=== PATIENT | male | born 1990 | race Caucasian/White ===

== ENCOUNTER 2018-04-16 23:11 | Inpatient (IN) | payer OTHER ==
--- NOTE | 2018-04-17 00:26 | PDOC ---
History of Present Illness - General History Source: Patient Exam Limitations: No Limitations - History of Present Illness Initial Comments: 04/17/18 01:52 The patient is a 28 year old male with a significant PMH of asthma who presents to the emergency department with a right hand wound for about 1 week. The patient reports that he was seen at [facility] about 1 week ab=go for severe right arm swelling secondary to recent heroin injection use. The patient reports that he was discharged from the hospital a few days ago by which he was given antibiotics. He states that since his discharge his wound has worsened. He states that his last heroin injection was a couple days ago. He denies and numbness, weakness or tingling sensation . he denies any recent injury or bites. The patient denies any other symptoms . he denies any fever, chills. Nausea, vomiting, diarrhea, constipation, or urinary symptoms. He denies any chest pain shortness of breath, headache or dizziness. The patient denies any other complaints. <Laurie Barber - Last Filed: 04/17/18 02:35> - General History Source: Patient Exam Limitations: No Limitations <Isaura Rondon - Last Filed: 04/18/18 05:36> - General Chief Complaint: Wound Stated Complaint: ABSCESS BOIL HAND Time Seen by Provider: 04/17/18 00:25 Past History <Laurie Barber - Last Filed: 04/17/18 02:35> - Past Medical History Anemia: No Asthma: No Cancer: No Cardiac Disorders: No CVA: No COPD: No CHF: No DVT: No - Surgical History Cardiac Surgery: No Cholecystectomy: No Gastric Stapling: No GI Surgery: No Lung Surgery: No - Suicide/Smoking/Psychosocial Hx Smoking History: Never smoked Drug/Substance Use Hx: Yes (Heroin, MDMA) Substance Use Type: Heroin <Isaura Rondon - Last Filed: 04/18/18 05:36> - Past Medical History Allergies/Adverse Reactions: Allergies Allergy/AdvReac Type Severity Reaction Status Date / Time No Known Allergies Allergy Verified 04/16/18 22:04 Home Medications: Ambulatory Orders NK [No Known Home Medication] 04/17/18 Review of Systems - Review of Systems Able to Perform ROS?: Yes Comments:: 04/17/18 01:52 GENERAL/CONSTITUTIONAL: No fever or chills. No weakness. HEAD, EYES, EARS, NOSE AND THROAT: No change in vision. No ear pain or discharge. No sore throat. CARDIOVASCULAR: No chest pain or shortness of breath. RESPIRATORY: No cough, wheezing, or hemoptysis. GASTROINTESTINAL: No nausea, vomiting, diarrhea or constipation. GENITOURINARY: No dysuria, frequency, or change in urination. MUSCULOSKELETAL: (+)right hand wound. No joint or muscle swelling or pain. No neck or back pain. SKIN: No rash NEUROLOGIC: No headache, vertigo, loss of consciousness, or change in strength/ sensation. ENDOCRINE: No increased thirst. No abnormal weight change. HEMATOLOGIC/LYMPHATIC: No anemia, easy bleeding, or history of blood clots. ALLERGIC/IMMUNOLOGIC: No hives or skin allergy. <Laurie Barber - Last Filed: 04/17/18 02:35> *Physical Exam - Vital Signs Last Vital Signs Temp Pulse Resp BP Pulse Ox 98.5 F 91 H 20 110/56 L 98 04/16/18 23:28 04/16/18 23:28 04/16/18 23:28 04/16/18 23:28 04/16/18 23:28 - Physical Exam Comments: 04/17/18 01:52 GENERAL: The patient is in no acute distress. HEAD: Normal with no signs of trauma. LUNGS: Breath sounds equal, clear to auscultation bilaterally. No wheezes, and no crackles. HEART:Regular rate and rhythm, normal S1 and S2 without murmur, rub or gallop. ABDOMEN: Soft, nontender, normoactive bowel sounds. No guarding, no rebound. No masses palpable. EXTREMITIES: (+)4x4 indurated area and +10cm erythema to right hand. Normal range of motion, no edema. No clubbing or cyanosis. No erythema, or tenderness. NEUROLOGICAL: Cranial nerves II through XII grossly intact. Normal speech. No focal neurological deficits. MUSCULOSKELETAL: Back non-tender to palpation, no CVA tenderness SKIN: Warm, Dry, normal turgor, no rashes or lesions noted. <Laurie Barber - Last Filed: 04/17/18 02:35> - Vital Signs Last Vital Signs Temp Pulse Resp BP Pulse Ox 98.5 F 91 H 20 110/56 L 98 04/16/18 23:28 04/16/18 23:28 04/16/18 23:28 04/16/18 23:28 04/16/18 23:28 <Isaura Rondon - Last Filed: 04/18/18 05:36> Heart Score/ECG Review - ECG Intrepretation Comment:: 04/17/18 02:35 Vent rate: 88bpm [place] interval:116 ms QRS duration:100 ms QT/QTc:398/481 ms Normal sinus rhythm Prolonged QT Abnormal ECG <Laurie Barber - Last Filed: 04/17/18 02:35> ED Treatment Course - LABORATORY CBC & Chemistry Diagram: 04/17/18 01:45 04/17/18 01:45 <Laurie Barber - Last Filed: 04/17/18 02:35> - LABORATORY CBC & Chemistry Diagram: 04/17/18 07:35 04/17/18 07:35 <Isaura Rondon - Last Filed: 04/18/18 05:36> Medical Decision Making - Medical Decision Making 04/17/18 02:01 Mr. Jimenez is a 28-year-old [id number] male presented to emergency department from [facility] due to forearm abscess. Patient was in his usual state of health, routinely injects heroin. Was unclear about the last time he injected heroin. Patient states that more than 1 week ago he noted swelling to his right forearm which she believes is related to his last injection. He was seen at [facility] where he was admitted for almost 1 week and placed on IV antibiotics. There was no attempt to incise or drain the forearm abscess. He states it appears better than it looked prior to his admission to [place]. He was discharged on by mouth antibiotics. Patient's decided to come to [facility] for heroin detox. He was noted to have this forearm abscess and was sent to the ER for evaluation On exam: Patient is awake, alert. Patient appears cachectic to me. Heart is regular with possibly a faint murmur Lungs are clear Right forearm with a 5 x 5 cm area of induration and fluctuance Patient has a 10 cm area at minimum of erythema. 04/17/18 02:08 EKG: Sinus rhythm, rate of 80 bpm, axis is normal, intervals are normal, no ST elevations or depressions Ordered for vanc and zosyn Admit to hospitalist service <Isaura Rondon - Last Filed: 04/18/18 05:36> *DC/Admit/Observation/Transfer - Attestations Scribe Attestion: 04/17/18 01:52 Documentation prepared by Laurie Barber, acting as medical assistant supervisor for Isaura Rondon MD. <Laurie Barber - Last Filed: 04/17/18 02:35> - Discharge Dispostion Decision to Admit order: Yes <Isaura Rondon - Last Filed: 04/18/18 05:36> Diagnosis at time of Disposition: Abscess of forearm, right - Discharge Dispostion Condition at time of disposition: Improved
[2018-04-17] MEDS ORDERED: PIPERACILLIN/TAZOB 4.5 GM 4.5 GM in DEXTROSE 5%-WATER 100 ML IVPB ONE (00:42)
[2018-04-17] MEDS ORDERED: PIPERACILLIN/TAZOB 4.5 GM 4.5 GM/100 ML BAG IVPB ONE (01:53)
[2018-04-17 02:15] LABS: BASO % 0.5 % (0-2.0); EOS % 5.6 % (0-4.5); HEMATOCRIT 33.9 % (35.4-49); LYMPH % 17.7 % (8-40); MCH 26.9 pg (25.7-33.7); MCHC 32.4 g/dl (32.0-35.9); MEAN CELL VOLUME 82.9 fl (80-96); MEAN PLT VOLUME 7.4 fl (7.5-11.1); MONO % 4.9 % (3.8-10.2); NEUT % 71.3 % (42.8-82.8); PLATELET COUNT 519 K/MM3 (134-434); RBC 4.09 M/mm3 (4.00-5.60); WHITE BLOOD COUNT 8.1 K/mm3 (4.0-10.0)
[2018-04-17 02:43] LABS: ALBUMIN 3.1 g/dl (3.4-5.0); ALK PHOS 104 U/L (45-117); ANION GAP 6 MMOL/L (8-16); BILIRUBIN,TOTAL 0.3 mg/dL (0.2-1); BLOOD UREA NITROGEN 7 mg/dL (7-18); CALCIUM 8.9 mg/dL (8.5-10.1); CHLORIDE 99 mmol/L (98-107); CO2 32 mmol/L (21-32); CREATININE 0.4 mg/dL (0.55-1.3); GLUCOSE,RANDOM 99 mg/dL (74-106); SGOT/AST 30 U/L (15-37); SGPT/ALT 31 U/L (13-61); SODIUM 137 mmol/L (136-145); TOT PROT 7.3 g/dl (6.4-8.2)
--- NOTE | 2018-04-17 04:28 | PN ---
Teaching Attending Note Name of Resident: Afshin Reid ATTENDING PHYSICIAN STATEMENT I saw and evaluated the patient. I reviewed the resident's note and discussed the case with the resident. I agree with the resident's findings and plan as documented. SUBJECTIVE: Patient is a 28 year old man with a PMH of asthma who presents to ER with a right hand wound for about 1 week. The patient reports that he was seen at [facility] about 1 week ago for severe right arm swelling due to recent heroin injection use. The patient reports that he was discharged from the hospital a few days ago with antibiotics. He states that since his discharge his wound has worsened. He states that his last heroin injection was a couple days ago. He denies and numbness, weakness or tingling sensation. He denies any fever, chills, vomiting, chest pain or shortness of breath. OBJECTIVE: Somnolent but arousable. Cachectic Vital Signs Period Temp Pulse Resp BP Sys/Betancur Pulse Ox Last 24 Hr 98.5 F 91 20 110/56 98-100 HEENT: No Jaundice, eye redness or discharge, PERRLA, EOMI. Normocephalic, atraumatic. External ears are normal and hearing is grossly intact. No nasal discharge. Neck: Supple, nontender. No palpable adenopathy or thyromegaly. No JVD Chest: Good effort. Clear to auscultation and percussion. Heart: Regular. No S3, rub or murmur Abdomen: Not distended, soft, nontender and no HSM. No rebound or guarding. Normoactive bowel sounds. Ext: Peripheral pulses intact. No leg edema. Skin: Warm and dry. Right forearm abscess with cellulitis. Neuro: Somnolent but arousable. Oriented to person and place. CN 2-12 grossly intact. Sensation grossly intact in all four extremities and DTR are symmetric. Home Medications Medication Instructions Recorded NK [No Known Home Medication] 04/17/18 Abnormal Lab Results 04/17/18 04/17/18 04/17/18 01:45 01:45 01:45 Hgb 11.0 L Hct 33.9 L Plt Count 519 H MPV 7.4 L Eosinophils % 5.6 H ESR Anion Gap 6 L Creatinine 0.4 L C-Reactive Protein 3.9 H Albumin 3.1 L 04/17/18 01:45 Hgb Hct Plt Count MPV Eosinophils % ESR 62 H Anion Gap Creatinine C-Reactive Protein Albumin ASSESSMENT AND PLAN: 1. Right forearm abscess and cellulitis - Due to injection drug use. Get sonogram of forearm, treat with IV clindamycin and zosyn and IV NS. Monitor closely for heroin withdrawal and use clonidine and methadone when indicated. Consult client care specialist, Plastic Surgeon and ID. Get HIV test. 2 Anemia - Likely mostly due to chronic inflammation. Will do basic anemia work up including serial stool guaiacs, reticulocyte count and iron studies. 3. DVT prophylaxis - Lovenox 40 mg SQ q 24 hours. 4. Advance directives - Full code
--- NOTE | 2018-04-17 04:52 | HP ---
CHIEF COMPLAINT: R Arm swelling and pain. PCP: none HISTORY OF PRESENT ILLNESS: Pt somnolent, difficult to receive responses to questions. Pt is a 28 y/o M with a past medical history of asthma who presented from [facility] to [facility] ED late yesterday evening c/o severe pain and erythema of his right forearm. Pt endorses that he uses intravenous heroine and his last injection was approximately 24 hours ago. Pt states that he was recently admitted to [facility] about 1 week ago for similar symptoms and was treated with I.V antibiotics (pt cannot recall names) and was discharged with PO antibiotics but never took them. Pt endorses that his right forearm was swollen and erythematous at that time; erythema spanning from his elbow to his wrist. Pt endorses he started sniffing heroine 4 years ago but recently started to inject about 1 year ago. Pt states he has never experienced his cellulites symptoms before a week ago. States he is nauseous and has vomited once. Endorses generalized fatigue, nausea, vomiting, and diarrhea. ER course was notable for: (1) ESR/CRP: 62/3.9 (2) Zosyn 4.5 gm (3) Recent Travel: denies PAST MEDICAL HISTORY: Asthma PAST SURGICAL HISTORY: Cholecystectomy, Tonsillectomy Social History: Smoking:denies Alcohol: denies Drugs: IV Heroine Family History: Allergies No Known Allergies Allergy (Verified 04/16/18 22:04) HOME MEDICATIONS: Home Medications Medication Instructions Recorded NK [No Known Home Medication] 04/17/18 REVIEW OF SYSTEMS Could not obtain, pt nodding yes to every question. Doesn't elaborate when prompted. PHYSICAL EXAMINATION Vital Signs - 24 hr 04/16/18 04/17/18 23:28 01:57 Temperature 98.5 F Pulse Rate 91 H Respiratory 20 Rate Blood Pressure 110/56 L O2 Sat by Pulse 98 100 Oximetry (%) GENERAL: Somnolent, difficult to arouse. Cachexia HEAD: Temporal wasting EYES: PERRLA, EOMI, No Scleral icterus EARS, NOSE, THROAT: MMM NECK: Supple LUNGS: CTA B/L HEART: RRR, No MRG, S1 S2 + ABDOMEN: NT, ND, No HSM. MUSCULOSKELETAL: FROM throughout. All 4 extremities: Thin, muscle wasting UPPER EXTREMITIES: Right forearm with about 10 cm area of erythema and induration. Swollen, warm, and tender. LOWER EXTREMITIES: No CCE NEUROLOGICAL: Somnolent SKIN: Erythema, tenderness, warmth of R forearm Laboratory Results - last 24 hr 04/17/18 04/17/18 04/17/18 01:45 01:45 01:45 WBC 8.1 RBC 4.09 Hgb 11.0 L Hct 33.9 L MCV 82.9 MCH 26.9 MCHC 32.4 RDW 15.0 Plt Count 519 H MPV 7.4 L Absolute Neuts (auto) 5.8 Neutrophils % 71.3 Lymphocytes % 17.7 Monocytes % 4.9 Eosinophils % 5.6 H Basophils % 0.5 Nucleated RBC % 0 ESR Sodium 137 Potassium 4.0 Chloride 99 Carbon Dioxide 32 Anion Gap 6 L BUN 7 Creatinine 0.4 L Creat Clearance w eGFR > 60 Random Glucose 99 Calcium 8.9 Total Bilirubin 0.3 AST 30 ALT 31 Alkaline Phosphatase 104 C-Reactive Protein 3.9 H Total Protein 7.3 Albumin 3.1 L 04/17/18 01:45 WBC RBC Hgb Hct MCV MCH MCHC RDW Plt Count MPV Absolute Neuts (auto) Neutrophils % Lymphocytes % Monocytes % Eosinophils % Basophils % Nucleated RBC % ESR 62 H Sodium Potassium Chloride Carbon Dioxide Anion Gap BUN Creatinine Creat Clearance w eGFR Random Glucose Calcium Total Bilirubin AST ALT Alkaline Phosphatase C-Reactive Protein Total Protein Albumin ASSESSMENT/PLAN: Pt is a 28 y/o M with a past medical history of asthma who presented to [facility] ED late yesterday evening c/o severe pain and eythema of his right forearm. Right Forearm Cellulites 2/2 IVDA -Pt endorses he last injected heroine into forearm approximately 24 hours ago - Received Zosyn in ED -Clindamycin 600 MG Q6H - ID Consult - HIV testing - Ultrasound Forearm to assess abscess -Hand Surgery Consult Heroine Withdrawal? -Pt exhibiting many features of heroine withdrawal (frequent yawning, piloerection, nausea, vomiting) -Addiction Consult -Clonidine 0.01 mg BID -Pt has prolonged QT, consider caution with Zofran/Metoclopromide. Qtc 481 FEN NS@100cc/hr Monitor Electrolytes Regular Diet DVT ppx: Heparin SQ TID Dispo: Monitor on Med-surg Visit type - Emergency Visit Emergency Visit: Yes ED Registration Date: 04/17/18 Care time: The patient presented to the Emergency Department on the above date and was hospitalized for further evaluation of their emergent condition. - New Patient This patient is new to me today: Yes Date on this admission: 04/17/18 - Critical Care Critical Care patient: No
[2018-04-17] MEDS ORDERED: SODIUM CHLORIDE 1,000 ML IV SCH (05:45)
[2018-04-17] MEDS ORDERED: cloNIDine HCL 0.1 MG TABLET PO SCH (05:45)
[2018-04-17] MEDS ORDERED: HEPARIN NA (PORCINE) 5,000 UNITS/ML 1ML VIAL SQ SCH (06:00)
[2018-04-17] MEDS ORDERED: HEPARIN NA (PORCINE) 5,000 UNITS/ML 1ML VIAL ONE (07:39)
[2018-04-17] MEDS ORDERED: CLINDAMYCIN 600MG PREMIX IVPB 600 MG/50 ML BAG IVPB ONE (07:39)
[2018-04-17] MEDS ORDERED: cloNIDine HCL 0.1 MG TABLET ONE (07:39)
[2018-04-17] MEDS: CLINDAMYCIN 600MG PREMIX IVPB 600 MG/50 ML BAG IVPB SCH ×2 (07:51→10:39)
[2018-04-17 08:06] LABS: BASO % 0.4 % (0-2.0); EOS % 4.5 % (0-4.5); HEMOGLOBIN 10.8 GM/dL (11.7-16.9); LYMPH % 17.8 % (8-40); MCHC 32.9 g/dl (32.0-35.9); MEAN PLT VOLUME 6.9 fl (7.5-11.1); MONO % 5.1 % (3.8-10.2); NEUT % 72.2 % (42.8-82.8); PLATELET COUNT 467 K/MM3 (134-434); RBC 4.02 M/mm3 (4.00-5.60); RDW 14.6 % (11.9-15.9); WHITE BLOOD COUNT 5.9 K/mm3 (4.0-10.0)
[2018-04-17 08:28] LABS: ANION GAP 8 MMOL/L (8-16); BLOOD UREA NITROGEN 7 mg/dL (7-18); CALCIUM 8.9 mg/dL (8.5-10.1); CHLORIDE 101 mmol/L (98-107); CO2 29 mmol/L (21-32); CREATININE 0.3 mg/dL (0.55-1.3); GLUCOSE,RANDOM 94 mg/dL (74-106); MAGNESIUM 2.2 mg/dL (1.8-2.4); PHOSPHOROUS 2.5 mg/dL (2.5-4.9); SODIUM 137 mmol/L (136-145)
[2018-04-17 08:37] LABS: INR 1.31 (0.83-1.09); PROTHROMBIN TIME (PATIENT) 15.5 SEC (9.7-13.0)
[2018-04-17 08:40] LABS: ACTIVATED PTT 32.7 SECONDS (25.2-36.5)
[2018-04-17] MEDS ORDERED: DEXTROSE 5%-LACTATED RINGERS 1,000 ML IV SCH (10:00)
--- NOTE | 2018-04-17 10:25 | EKG ---
Test Reason : Blood Pressure : / mmHG Vent. Rate : 088 BPM Atrial Rate : 088 BPM P-R Int : 116 ms QRS Dur : 100 ms QT Int : 398 ms P-R-T Axes : 044 062 055 degrees QTc Int : 481 ms NORMAL SINUS RHYTHM PROLONGED QT ABNORMAL ECG NO PREVIOUS ECGS AVAILABLE Confirmed by ELADIO INMAN, CHARLES ([id number]) on 04/17/2018 10:24:53 AM Referred By: Confirmed By:CHARLES HENDRICKS MD
[2018-04-17 10:26] VITALS: BMI 17.2
--- NOTE | 2018-04-17 10:47 | CONSULT ---
Consult Detox [facility] Reason for Current Admission/Consult: IV heroin use - History History of Present Illness: Pt was seen in [facility] for admission to detox for opioid use disorder. Pt noted to have a R arm abscess- referred to [facility] ER for eval and management. Further hx: "The patient reports that he was seen at [facility] about 1 week ab=go for severe right arm swelling secondary to recent heroin injection use. The patient reports that he was discharged from the hospital a few days ago by which he was given antibiotics. He states that since his discharge his wound has worsened. He states that his last heroin injection was a couple days ago. He denies and numbness, weakness or tingling sensation . he denies any recent injury or bites" Pt reports using 25 bags heroin/day since age 21 , + IVDU in loan UE Urine tox: pos for opiates and fentanyl Search Terms: leonel marquis, 1990 Search Date: 04/17/2018 10:46:29 AM The Drug Utilization Report below displays all of the controlled substance prescriptions, if any, that your patient has filled in the last twelve months. The information displayed on this report is compiled from pharmacy submissions to the Department, and accurately reflects the information as submitted by the pharmacies. This report was requested by: Jeremy Moore | Reference #: [id number] Others' Prescriptions Patient Name: Leonel Marquis Date: 1990 Address: [address] [place] [address] Sex: Male Rx Written Rx Dispensed Drug Quantity Days Supply Prescriber Name 11/12/2017 11/12/2017 suboxone 8 mg-2 mg sl film 42 21 Zenia Byrne P () 10/30/2017 10/30/2017 suboxone 8 mg-2 mg sl film 28 14 Zenia Byrne P () 10/12/2017 10/12/2017 suboxone 8 mg-2 mg sl film 28 14 Zenia Byrne P () 09/28/2017 09/28/2017 suboxone 8 mg-2 mg sl film 28 14 Zenia Byrne P () 09/14/2017 09/14/2017 suboxone 8 mg-2 mg sl film 28 14 Zenia Byrne P () 08/24/2017 08/24/2017 suboxone 8 mg-2 mg sl film 42 21 Zenia Byrne P () 08/03/2017 08/03/2017 suboxone 8 mg-2 mg sl film 42 21 Zenia Byrne P () 07/20/2017 07/20/2017 suboxone 8 mg-2 mg sl film 28 14 Zenia Byrne P () 07/10/2017 07/10/2017 suboxone 8 mg-2 mg sl film 15 10 Zenia Byrne P () 06/29/2017 06/29/2017 suboxone 8 mg-2 mg sl film 15 10 Zenia Byrne P () COWS - Scale Resting Pulse: 1= SC 81-100 Restless Observation: 1= Difficult to Sit Still Pupil Size: 1= Pupils >than Normal Bone or Joint Aches: 1= Mild Discomfort Runny Nose/ Eye Tearin= Nasal Congestion GI Upset > 30mins: 1= Stomach Cramp Tremor Observation: 2= Slight Tremor Visible Yawning Observation: 0= None Anxiety or Irritability: 1=Feels Anxious/Irritable Goose Flesh Skin: 0=Smooth Skin Assessment Plan - Diagnosis (1) IVDU (intravenous drug user) Status: Acute - Plan Plan: d/w pt for options to treat opioid withdrawal. Pt has been on Suboxone in the past- discussed restarting and continuing on this at discharge. Pt states he prefers methadone to Suboxone and would like to be on methadone detox. Pt states he lives in [place] but maybe willing to come to [facility] for Methadone OTP. Methadone detox protocol started. Pt may be transferred back to [facility] to complete detox protocol when medically cleared. - Medication Detox Regimen/Protocol: Methadone
--- NOTE | 2018-04-17 10:47 | CONSULT ---
Consult Consult Specialty:: Hand and Microsurgery Referred by:: Franklin Reason for Consultation:: right forearm abscess - History of Present Illness Chief Complaint: forearm cellulitis History of Present Illness: 28 yo RHD male PMH IVDA, asthma who presents to ER with a right hand wound for about 1 week. The patient reports that he was seen at [facility] about 1 week ago for severe right arm swelling due to recent heroin injection use. The patient reports that he was discharged from the hospital a few days ago with antibiotics. He states that since his discharge his wound has worsened. He states that his last heroin injection was a couple days ago. He denies and numbness, weakness or tingling sensation. He denies any fever, chills, vomiting , chest pain or shortness of breath. we were asked to assess. - History Source History Provided By: Patient, Medical Record Limitations to Obtaining History: No Limitations - Smoking History Smoking history: Former smoker Have you smoked in the past 12 months: No Aproximately how many cigarettes per day: 2 - Social History Place of : [facility] History of Recent Travel: No Home Medications - Allergies Allergies/Adverse Reactions: Allergies Allergy/AdvReac Type Severity Reaction Status Date / Time No Known Allergies Allergy Verified 04/16/18 22:04 - Home Medications Home Medications: Ambulatory Orders NK [No Known Home Medication] 04/17/18 Review of Systems - Review of Systems Constitutional: denies: Chills, Fever, Weakness Eyes: denies: Blind Spots, Recent Change in Vision HENT: denies: Difficult Swallowing, Throat Pain Neck: denies: Decreased ROM, Tenderness Cardiovascular: denies: Chest Pain, Palpitations Respiratory: denies: Cough, SOB Gastrointestinal: denies: Abdominal Pain, Constipation, Diarrhea Integumentary: reports: Lump Neurological: denies: Seizure, Syncope Endocrine: denies: Increased Thirst, Unexplained Weight Gain, Unexplained Weight Loss Hematology/Lymphatic: denies: Easily Bruised, Excessive Bleeding Psychiatric: denies: Anxiety, Depression Physical Exam Vital Signs: Vital Signs Temperature 98.3 F 04/17/18 10:17 Pulse Rate 89 04/17/18 10:17 Respiratory Rate 20 04/17/18 10:17 Blood Pressure 117/56 L 04/17/18 10:17 O2 Sat by Pulse Oximetry (%) 98 04/17/18 07:49 Vital Signs Period Temp Pulse Resp BP Sys/Betancur Pulse Ox Last 24 Hr 98.1 F-98.5 F 81-91 18-20 104-117/56-59 98-100 Constitutional: Yes: No Distress, Calm, Thin Eyes: Yes: Conjunctiva Clear, EOM Intact HENT: Yes: Atraumatic, Normocephalic Neck: Yes: Supple, Trachea Midline Cardiovascular: Yes: Regular Rate and Rhythm, S1, S2 Respiratory: Yes: Regular, CTA Bilaterally Gastrointestinal: Yes: Normal Bowel Sounds, Soft. No: Tenderness ...Rectal Exam: Yes: Deferred Renal/: No: CVA Tenderness - Left, CVA Tenderness - Right Extremities: No: Cool, Cyanosis Edema: No Edema: RUE: 2+ Peripheral Pulses WNL: Yes Integumentary: No: Jaundice, Rash Wound/Incision: Yes: Reddened (Volar right forearm 5X5cm fluctuant at the site of injection) Neurological: Yes: Alert, Oriented Psychiatric: Yes: Alert, Oriented Labs: CBC, BMP 04/17/18 07:35 04/17/18 07:35 Imaging - Results Ultrasound: Report Reviewed, Image Reviewed (forearm phlegmon) Problem List - Problems (1) IVDU (intravenous drug user) Assessment/Plan: 28 yo RHD IVDA with right forearm abscess NPO and IVF hydration OR for I&D of right forearm abscess Discussed with patient risks, benefits and alternatives of aforementioned procedure, including but not limited to bleeding, infection, injury to adjacent structures, loss of fucntion, amputation, need for further procedures, ; alternatives include antibiotics, delayed or no surgery - risks of this include failure of nonoperative therapy, loss of fucntion, sepsis, recurrence, . Patient desires to proceed with operation - will take to OR for above. Informed consent signed for same. Code(s): F19.90 - OTHER PSYCHOACTIVE SUBSTANCE USE, UNSPECIFIED, UNCOMPLICATED (2) Asthma Code(s): J45.909 - UNSPECIFIED ASTHMA, UNCOMPLICATED Qualifiers: Asthma severity: mild Asthma persistence: intermittent Asthma complication type: uncomplicated Qualified Code(s): J45.20 - Mild intermittent asthma, uncomplicated (3) Methadone dependence Code(s): F11.20 - OPIOID DEPENDENCE, UNCOMPLICATED (4) Abscess of forearm, right Code(s): L02.413 - CUTANEOUS ABSCESS OF RIGHT UPPER LIMB
[2018-04-17] MEDS ORDERED: VANCOMYCIN 1 GRAM (PRE-DOCKED) 1,000 MG/250 ML BAG IVPB SCH (11:45)
[2018-04-17] MEDS ORDERED: PIPERACILLIN/TAZOB 4.5 GM 4.5 GM in DEXTROSE 5%-WATER 100 ML IVPB SCH (11:45)
--- NOTE | 2018-04-17 11:47 | CON.ID ---
Consult Consult Specialty:: infectious disease Referred by:: hospitalist service Reason for Consultation:: infection of forearm - History of Present Illness Chief Complaint: pain and swelling right forearm History of Present Illness: 28 yo man active IVDU recently hospitalized at [facility] with diffuse right arm swelling- treated with iv antiibotics and discharged on po antibiotics that he didn't take- now with swelling of the distal forearm no fevers injects both arms last injected yesterday-left arm does not share needles reuses needles denies history of hepatitis no prior history of abscesses - History Source History Provided By: Patient, Medical Record Limitations to Obtaining History: Poor Historian - Past Medical History Pulmonary: Yes: Asthma - Past Surgical History Past Surgical History: Yes: Cholecystectomy - Smoking History Smoking history: Former smoker Have you smoked in the past 12 months: No Aproximately how many cigarettes per day: 2 - Social History Usual Living Arrangement: Other (homeless) ADL: Independent History of Recent Travel: No Home Medications - Allergies Allergies/Adverse Reactions: Allergies Allergy/AdvReac Type Severity Reaction Status Date / Time No Known Allergies Allergy Verified 04/16/18 22:04 - Home Medications Home Medications: Ambulatory Orders NK [No Known Home Medication] 04/17/18 Review of Systems - Review of Systems Constitutional: reports: Chills. denies: Fever Cardiovascular: denies: Chest Pain Respiratory: denies: Cough Gastrointestinal: reports: Nausea, Vomiting. denies: Abdominal Pain Genitourinary: reports: No Symptoms Physical Exam Vital Signs: Vital Signs Temperature 98.3 F 04/17/18 10:17 Pulse Rate 89 04/17/18 10:17 Respiratory Rate 20 04/17/18 10:17 Blood Pressure 117/56 L 04/17/18 10:17 O2 Sat by Pulse Oximetry (%) 98 04/17/18 07:49 Constitutional: Yes: Well Nourished, No Distress, Calm Eyes: Yes: Conjunctiva Clear HENT: Yes: Atraumatic, Normocephalic. No: Thrush Neck: Yes: Supple, Trachea Midline Cardiovascular: Yes: Regular Rate and Rhythm Respiratory: Yes: Regular, CTA Bilaterally Gastrointestinal: Yes: Normal Bowel Sounds, Soft Musculoskeletal: Yes: WNL Extremities: Yes: Other (right forearm with 3-4 cm raised fluctuant mass with surrounding erythema, tender to palpation unable to completely open his hand) Neurological: Yes: Alert, Oriented Labs: CBC, BMP 04/17/18 07:35 04/17/18 07:35 blood cultures pending Imaging - Results Chest X-ray: Report Reviewed, Image Reviewed X-ray: Report Reviewed, Image Reviewed (no air) Ultrasound: Report Reviewed Problem List - Problems (1) Abscess of forearm, right Code(s): L02.413 - CUTANEOUS ABSCESS OF RIGHT UPPER LIMB (2) IVDU (intravenous drug user) Code(s): F19.90 - OTHER PSYCHOACTIVE SUBSTANCE USE, UNSPECIFIED, UNCOMPLICATED Assessment/Plan vanco/zosyn surgery to drain abscess detox consult hiv negative
[2018-04-17] MEDS ORDERED: METHADONE HCL 10 MG TABLET PO ONE ×3 (11:58→23:00)
[2018-04-17] MEDS ORDERED: DEXTROSE 5%-WATER 100 ML IVPB ONE ×2 (11:59→17:23)
[2018-04-17] MEDS ORDERED: PIPERACILLIN/TAZOBACTAM 4.5 GM VIAL IVPB ONE ×2 (11:59→17:23)
[2018-04-17] MEDS ORDERED: LIDOCAINE HCL 1%, 10 MG/ML (20ML VIAL) NR ONE (14:27)
--- NOTE | 2018-04-17 14:57 | OP ---
Operative Note - Note: Operative Date: 04/17/18 Pre-Operative Diagnosis: right forearm abscess Operation: incision and drainage of right forarm abscess Findings: 5X5cm volar abscess with 10ml of pus. 1"iodoform. dressed all counts correct Post-Operative Diagnosis: Same as Pre-op Surgeon: Dillan Moise Anesthesiologist/MICROBIOLOGY LABORATORY MANAGER: Dexter Solorio Anesthesia: Local, MAC Specimens Removed: culture Estimated Blood Loss (mls): 5 Fluid Volume Replaced (mls): 500 Operative Report Dictated: Yes
[2018-04-17] MEDS: DEXTROSE 5%-LACTATED RINGERS 1,000 ML IV SCH (16:00)
[2018-04-17] MEDS: PIPERACILLIN/TAZOB 4.5 GM 4.5 GM in DEXTROSE 5%-WATER 100 ML IVPB SCH (17:25)
--- NOTE | 2018-04-17 18:18 | PN ---
Teaching Attending Note Name of Resident: Jaz Beverly ATTENDING PHYSICIAN STATEMENT I saw and evaluated the patient. I reviewed the resident's note and discussed the case with the resident. I agree with the resident's findings and plan as documented with exceptions below. SUBJECTIVE: Patient seen and examined. Right forearm pain, denies any fevers/chills. OBJECTIVE: Vital Signs Period Temp Pulse Resp BP Sys/Betancur Pulse Ox Last 24 Hr 97.4 F-98.5 F 65-114 12-20 93-117/37-73 98-100 Intake & Output 04/14/18 04/15/18 04/16/18 04/17/18 23:59 23:59 23:59 23:59 Intake Total 0 Output Total 0 Balance 0 Weight 140 lb 127 lb General: lying in bed, awake, no acute distress Chest; CTAB, no rales or wheezing Abdomen:Soft, NT ND Extremities: 2 cm fluctuant swelling above right wrist with surrounding erythema /warmth/tenderness, positive radial pulses bilateral UE needle bravo around antecubital fossa Home Medications Medication Instructions Recorded NK [No Known Home Medication] 04/17/18 Active Medications Dextrose/Lactated Ringer's (D5-Lr -) 1,000 mls @ 100 mls/hr IV ASDIR MONICA Last Admin: 04/17/18 16:00 Dose: 0 mls Vancomycin HCl (Vancomycin (Pre-Docked)) 1,000 mg in 250 mls @ 166.667 mls/hr IVPB BID@0000,1200 MONICA; Protocol Piperacillin Sod/Tazobactam (Sod 4.5 gm/ Dextrose) 100 mls @ 200 mls/hr IVPB Q8H-IV MONICA; Protocol Last Admin: 04/17/18 17:25 Dose: 200 mls/hr Methadone HCl (Dolophine -) 10 mg PO ONCE@2300 ONE Stop: 04/17/18 23:01 Methadone HCl (Dolophine -) 20 mg PO ONCE ONE Stop: 04/18/18 10:01 Methadone HCl (Dolophine -) 10 mg PO ONCE ONE Stop: 04/21/18 10:01 Methadone HCl (Dolophine -) 15 mg PO ONCE ONE Stop: 04/19/18 23:59 Methadone HCl (Dolophine -) 15 mg PO ONCE ONE Stop: 04/20/18 23:59 Methadone HCl (Dolophine -) 5 mg PO ONCE@0600 ONE Stop: 04/22/18 23:59 Laboratory Results - last 24 hr 04/17/18 04/17/18 04/17/18 01:45 01:45 01:45 WBC 8.1 RBC 4.09 Hgb 11.0 L Hct 33.9 L MCV 82.9 MCH 26.9 MCHC 32.4 RDW 15.0 Plt Count 519 H MPV 7.4 L Absolute Neuts (auto) 5.8 Neutrophils % 71.3 Lymphocytes % 17.7 Monocytes % 4.9 Eosinophils % 5.6 H Basophils % 0.5 Nucleated RBC % 0 ESR Retic Count PT with INR INR PTT (Actin FS) Sodium 137 Potassium 4.0 Chloride 99 Carbon Dioxide 32 Anion Gap 6 L BUN 7 Creatinine 0.4 L Creat Clearance w eGFR > 60 Random Glucose 99 Calcium 8.9 Phosphorus Magnesium Ferritin Total Bilirubin 0.3 AST 30 ALT 31 Alkaline Phosphatase 104 C-Reactive Protein 3.9 H Total Protein 7.3 Albumin 3.1 L HIV 1&2 Antibody Screen HIV P24 Antigen 04/17/18 04/17/18 04/17/18 01:45 07:35 07:35 WBC 5.9 RBC 4.02 Hgb 10.8 L Hct 33.0 L MCV 82.0 MCH 27.0 MCHC 32.9 RDW 14.6 Plt Count 467 H MPV 6.9 L Absolute Neuts (auto) 4.2 Neutrophils % 72.2 Lymphocytes % 17.8 Monocytes % 5.1 Eosinophils % 4.5 Basophils % 0.4 Nucleated RBC % 0 ESR 62 H Retic Count PT with INR 15.50 H INR 1.31 H PTT (Actin FS) 32.7 Sodium Potassium Chloride Carbon Dioxide Anion Gap BUN Creatinine Creat Clearance w eGFR Random Glucose Calcium Phosphorus Magnesium Ferritin Total Bilirubin AST ALT Alkaline Phosphatase C-Reactive Protein Total Protein Albumin HIV 1&2 Antibody Screen HIV P24 Antigen 04/17/18 04/17/18 04/17/18 07:35 07:35 07:35 WBC RBC Hgb Hct MCV MCH MCHC RDW Plt Count MPV Absolute Neuts (auto) Neutrophils % Lymphocytes % Monocytes % Eosinophils % Basophils % Nucleated RBC % ESR Retic Count 1.26 PT with INR INR PTT (Actin FS) Sodium 137 Potassium 4.0 Chloride 101 Carbon Dioxide 29 Anion Gap 8 BUN 7 Creatinine 0.3 L Creat Clearance w eGFR > 60 Random Glucose 94 Calcium 8.9 Phosphorus 2.5 Magnesium 2.2 Ferritin 198.4 Total Bilirubin AST ALT Alkaline Phosphatase C-Reactive Protein Total Protein Albumin HIV 1&2 Antibody Screen HIV P24 Antigen 04/17/18 07:35 WBC RBC Hgb Hct MCV MCH MCHC RDW Plt Count MPV Absolute Neuts (auto) Neutrophils % Lymphocytes % Monocytes % Eosinophils % Basophils % Nucleated RBC % ESR Retic Count PT with INR INR PTT (Actin FS) Sodium Potassium Chloride Carbon Dioxide Anion Gap BUN Creatinine Creat Clearance w eGFR Random Glucose Calcium Phosphorus Magnesium Ferritin Total Bilirubin AST ALT Alkaline Phosphatase C-Reactive Protein Total Protein Albumin HIV 1&2 Antibody Screen Negative HIV P24 Antigen Negative ASSESSMENT AND PLAN: 28 yom with PMHX of Asthma, IVDU with heroine since age of 21, recently admitted to another hospital with ?Rt forearm cellulitis, d/liilane on abx, but non compliance, comes with Right forearm abscess at prior IVDU site. -Right forearm abscess at prior IVDU site with early sepsis, s/p I&D 04/17 -Heroine addiction/IVDU -Asthma, not in exacerbation Plan: s/p I&D, wound cx sent. ID input noted, zosyn/vancomcyin, monitor vanco levels. Detox consult, Placed on methadone. DVTPPX lovenox Dispo anticipate d/c back to [facility] once medical issues resolve. Plan discussed with patient in detail, all questions answered.
[2018-04-17] MEDS ORDERED: KETOROLAC TROMETHAMINE 30 MG/1 ML VIAL IVPUSH PRN (18:20)
[2018-04-17] MEDS ORDERED: MORPHINE SULFATE 2 MG/ML VIAL IVPUSH PRN (18:20)
--- NOTE | 2018-04-17 21:10 | PN ---
Physical Exam: SUBJECTIVE: Patient seen and examined this morning at bedside. Was falling asleep during my interview. Continues to have R Forearm pain. Denies any fevers , chills, chest pain, SOB, nausea, vomiting. Says he was recently in [facility] in [facility] OBJECTIVE: Vital Signs Period Temp Pulse Resp BP Sys/Betancur Pulse Ox Last 24 Hr 97.4 F-98.5 F 65-114 12-20 93-136/37-78 98-100 GENERAL: Somnolent, kept falling asleep but easily arousable, fully oriented, NAD HEAD: NCAT EYES: PERRL, EOMI ENT: Oropharynx clear without exudates, moist mucous membranes. NECK: No JVD LUNGS: Breath sounds equal, clear to auscultation bilaterally, no wheezes HEART: Regular rate and rhythm, S1, S2 without murmur ABDOMEN: Soft, nontender, nondistended, + bowel sounds, no guarding EXTREMITIES: 2+ pulses, no edema. 3-4cm swollen, fluctuant, tender abscess on the Lateral R Forearm, with surrounding erythema and warmth. C5-T1 Gross sensation intact b/l. 5/5 muscles strength to Handgrip, Elbow flexion/extension , Shoulder abduction. NEUROLOGICAL: Cranial nerves II through XII grossly intact. Normal speech SKIN: Warm, dry Laboratory Results - last 24 hr 04/17/18 04/17/18 04/17/18 01:45 01:45 01:45 WBC 8.1 RBC 4.09 Hgb 11.0 L Hct 33.9 L MCV 82.9 MCH 26.9 MCHC 32.4 RDW 15.0 Plt Count 519 H MPV 7.4 L Absolute Neuts (auto) 5.8 Neutrophils % 71.3 Lymphocytes % 17.7 Monocytes % 4.9 Eosinophils % 5.6 H Basophils % 0.5 Nucleated RBC % 0 ESR Retic Count PT with INR INR PTT (Actin FS) Sodium 137 Potassium 4.0 Chloride 99 Carbon Dioxide 32 Anion Gap 6 L BUN 7 Creatinine 0.4 L Creat Clearance w eGFR > 60 Random Glucose 99 Calcium 8.9 Phosphorus Magnesium Ferritin Total Bilirubin 0.3 AST 30 ALT 31 Alkaline Phosphatase 104 C-Reactive Protein 3.9 H Total Protein 7.3 Albumin 3.1 L HIV 1&2 Antibody Screen HIV P24 Antigen 04/17/18 04/17/18 04/17/18 01:45 07:35 07:35 WBC 5.9 RBC 4.02 Hgb 10.8 L Hct 33.0 L MCV 82.0 MCH 27.0 MCHC 32.9 RDW 14.6 Plt Count 467 H MPV 6.9 L Absolute Neuts (auto) 4.2 Neutrophils % 72.2 Lymphocytes % 17.8 Monocytes % 5.1 Eosinophils % 4.5 Basophils % 0.4 Nucleated RBC % 0 ESR 62 H Retic Count PT with INR 15.50 H INR 1.31 H PTT (Actin FS) 32.7 Sodium Potassium Chloride Carbon Dioxide Anion Gap BUN Creatinine Creat Clearance w eGFR Random Glucose Calcium Phosphorus Magnesium Ferritin Total Bilirubin AST ALT Alkaline Phosphatase C-Reactive Protein Total Protein Albumin HIV 1&2 Antibody Screen HIV P24 Antigen 04/17/18 04/17/18 04/17/18 07:35 07:35 07:35 WBC RBC Hgb Hct MCV MCH MCHC RDW Plt Count MPV Absolute Neuts (auto) Neutrophils % Lymphocytes % Monocytes % Eosinophils % Basophils % Nucleated RBC % ESR Retic Count 1.26 PT with INR INR PTT (Actin FS) Sodium 137 Potassium 4.0 Chloride 101 Carbon Dioxide 29 Anion Gap 8 BUN 7 Creatinine 0.3 L Creat Clearance w eGFR > 60 Random Glucose 94 Calcium 8.9 Phosphorus 2.5 Magnesium 2.2 Ferritin 198.4 Total Bilirubin AST ALT Alkaline Phosphatase C-Reactive Protein Total Protein Albumin HIV 1&2 Antibody Screen HIV P24 Antigen 04/17/18 07:35 WBC RBC Hgb Hct MCV MCH MCHC RDW Plt Count MPV Absolute Neuts (auto) Neutrophils % Lymphocytes % Monocytes % Eosinophils % Basophils % Nucleated RBC % ESR Retic Count PT with INR INR PTT (Actin FS) Sodium Potassium Chloride Carbon Dioxide Anion Gap BUN Creatinine Creat Clearance w eGFR Random Glucose Calcium Phosphorus Magnesium Ferritin Total Bilirubin AST ALT Alkaline Phosphatase C-Reactive Protein Total Protein Albumin HIV 1&2 Antibody Screen Negative HIV P24 Antigen Negative Active Medications Enoxaparin Sodium (Lovenox -) 40 mg SQ DAILY [facility] Dextrose/Lactated Ringer's (D5-Lr -) 1,000 mls @ 100 mls/hr IV ASDIR MONICA Last Admin: 04/17/18 16:00 Dose: 0 mls Vancomycin HCl (Vancomycin (Pre-Docked)) 1,000 mg in 250 mls @ 166.667 mls/hr IVPB BID@0000,1200 MONICA; Protocol Piperacillin Sod/Tazobactam (Sod 4.5 gm/ Dextrose) 100 mls @ 200 mls/hr IVPB Q8H-IV MONICA; Protocol Last Admin: 04/17/18 17:25 Dose: 200 mls/hr Ketorolac Tromethamine (Toradol Injection -) 30 mg IVPUSH Q6H PRN PRN Reason: PAIN LEVEL 7 - 10 Stop: 04/22/18 18:19 Last Admin: 04/17/18 18:35 Dose: 30 mg Methadone HCl (Dolophine -) 10 mg PO ONCE@2300 ONE Stop: 04/17/18 23:01 Methadone HCl (Dolophine -) 20 mg PO ONCE ONE Stop: 04/18/18 10:01 Methadone HCl (Dolophine -) 10 mg PO ONCE ONE Stop: 04/21/18 10:01 Methadone HCl (Dolophine -) 15 mg PO ONCE ONE Stop: 04/19/18 23:59 Methadone HCl (Dolophine -) 15 mg PO ONCE ONE Stop: 04/20/18 23:59 Methadone HCl (Dolophine -) 5 mg PO ONCE@0600 ONE Stop: 04/22/18 23:59 Morphine Sulfate (Morphine Sulfate) 2 mg IVPUSH Q4H PRN PRN Reason: PAIN LEVEL 7 - 10 IMAGING: -CXR: No evidence of active pulmonary disease. -R Forearm XRay: Soft tissue swelling distal aspect of the forearm without visible radiopaque foreign body, emphysematous changes. -R Forearm US: A hyperemic approximately 5 x 4 x 2.4 cm soft tissue lesion is seen along the ventral aspect of the lower right forearm possibly representing a phlegmon. No definite drainable fluid collection is visualized. -EKG: NORMAL SINUS RHYTHM, QTc 481 ASSESSMENT/PLAN: 28 y/o M with PMHx of asthma presented with swollen, fluctuant, tender abscess on the Lateral R Forearm. 1. Right Forearm Abscess -Due to IVDA S/P I&D (04/17) -R Forearm XRay and Ultrasound noted above -ESR and CRP elevation noted, Doubt Osteo -Hand Surgery (Dr. Moise) Consulted, Appreciate Rec's, Appreciate I&D, 5X5cm volar abscess with 10mL of pus, 5mL Estimated Blood Loss -Last Heroine injection at abscess site approx. 24 hours ago -Started Vancomycin, Zosyn (04/17) -ID (Dr. Queen) Consulted, Appreciate Recs -HIV negative -Continue pain control with Morphine, Toradol 2. Hx of Heroine use -Exhibiting sx's of recent use; Hx of Suboxone use -Addiction medicine (Dr. Vizcaino) Consulted, Appreciate Rec's, Methadone detox protocol started. Pt may be transferred back to [facility] to complete detox protocol when medically cleared. -Continue Methadone protocol -Monitor closely for signs of withdrawal 3. Prolonged QT -EKG Shows QTc of 481 -Avoid QT prolonging medications, Continue to monitor 4. Hx of Asthma -Denies currently using Inhalers or nebulizers at home -Continue to monitor, likely would benefit from outpatient PFTs 5. FEN -D5-Lr -@ 100 mLs/hr -Lytes WNL -Regular Diet 6. PPx -DVT: Heparin Dispo: Monitor on Med-surg Visit type - Emergency Visit Emergency Visit: Yes ED Registration Date: 04/17/18 Care time: The patient presented to the Emergency Department on the above date and was hospitalized for further evaluation of their emergent condition. - New Patient This patient is new to me today: Yes Date on this admission: 04/17/18 - Critical Care Critical Care patient: No - Discharge Referral Referred to [facility] Med P.C.: No
[2018-04-17] MEDS: VANCOMYCIN 1 GRAM (PRE-DOCKED) 1,000 MG/250 ML BAG IVPB SCH (23:21)
[2018-04-18] MEDS ORDERED: PIPERACILLIN/TAZOBACTAM 4.5 GM VIAL IVPB ONE ×2 (01:17→09:29)
[2018-04-18] MEDS ORDERED: DEXTROSE 5%-WATER 100 ML IVPB ONE ×2 (01:17→09:29)
[2018-04-18] MEDS: PIPERACILLIN/TAZOB 4.5 GM 4.5 GM in DEXTROSE 5%-WATER 100 ML IVPB SCH ×2 (01:35→09:45)
[2018-04-18] MEDS: DEXTROSE 5%-LACTATED RINGERS 1,000 ML IV SCH ×2 (03:57→15:39)
[2018-04-18 07:58] LABS: ALBUMIN 2.6 g/dl (3.4-5.0); ALK PHOS 66 U/L (45-117); ANION GAP 4 MMOL/L (8-16); BILIRUBIN,TOTAL 0.3 mg/dL (0.2-1); BLOOD UREA NITROGEN 5 mg/dL (7-18); CALCIUM 8.6 mg/dL (8.5-10.1); CHLORIDE 106 mmol/L (98-107); CO2 28 mmol/L (21-32); CREATININE 0.4 mg/dL (0.55-1.3); GLUCOSE,RANDOM 90 mg/dL (74-106); MAGNESIUM 2.2 mg/dL (1.8-2.4); PHOSPHOROUS 2.8 mg/dL (2.5-4.9); POTASSIUM 4.3 mmol/L (3.5-5.1); SGOT/AST 15 U/L (15-37); SGPT/ALT 23 U/L (13-61); SODIUM 138 mmol/L (136-145); TOT PROT 6.2 g/dl (6.4-8.2)
[2018-04-18 08:14] LABS: BASO % 0.7 % (0-2.0); EOS % 9.1 % (0-4.5); HEMATOCRIT 32.4 % (35.4-49); HEMOGLOBIN 10.6 GM/dL (11.7-16.9); LYMPH % 34.4 % (8-40); MCH 27.2 pg (25.7-33.7); MCHC 32.6 g/dl (32.0-35.9); MEAN CELL VOLUME 83.3 fl (80-96); MEAN PLT VOLUME 7.3 fl (7.5-11.1); MONO % 9.5 % (3.8-10.2); NEUT % 46.3 % (42.8-82.8); PLATELET COUNT 445 K/MM3 (134-434); RBC 3.88 M/mm3 (4.00-5.60); RDW 14.7 % (11.9-15.9); WHITE BLOOD COUNT 3.8 K/mm3 (4.0-10.0)
--- NOTE | 2018-04-18 08:51 | PN ---
Teaching Attending Note Name of Resident: Jaz Beverly ATTENDING PHYSICIAN STATEMENT I saw and evaluated the patient. I reviewed the resident's note and discussed the case with the resident. I agree with the resident's findings and plan as documented with exceptions below. SUBJECTIVE: Patient seen and examined. sleeping but arousable, pain well controlled, no new complaints. OBJECTIVE: Vital Signs Period Temp Pulse Resp BP Sys/Betancur Pulse Ox Last 24 Hr 97.4 F-98.3 F 65-114 12-20 93-136/37-78 98-100 Intake & Output 04/15/18 04/16/18 04/17/18 04/18/18 23:59 23:59 23:59 23:59 Intake Total 1744 1550 Output Total 0 Balance 1744 1550 Weight 140 lb 127 lb General: lying in bed no acute distress Extremities: right hand dressing no surrounding swelling/erythema noted Active Medications Enoxaparin Sodium (Lovenox -) 40 mg SQ DAILY [facility] Dextrose/Lactated Ringer's (D5-Lr -) 1,000 mls @ 100 mls/hr IV ASDIR MONICA Last Admin: 04/18/18 03:57 Dose: 100 mls/hr Vancomycin HCl (Vancomycin (Pre-Docked)) 1,000 mg in 250 mls @ 166.667 mls/hr IVPB BID@0000,1200 MONICA; Protocol Last Admin: 04/17/18 23:21 Dose: 166.667 mls/hr Piperacillin Sod/Tazobactam (Sod 4.5 gm/ Dextrose) 100 mls @ 200 mls/hr IVPB Q8H-IV MONICA; Protocol Last Admin: 04/18/18 01:35 Dose: 200 mls/hr Ketorolac Tromethamine (Toradol Injection -) 30 mg IVPUSH Q6H PRN PRN Reason: PAIN LEVEL 7 - 10 Stop: 04/22/18 18:19 Last Admin: 04/17/18 18:35 Dose: 30 mg Methadone HCl (Dolophine -) 20 mg PO ONCE ONE Stop: 04/18/18 10:01 Methadone HCl (Dolophine -) 10 mg PO ONCE ONE Stop: 04/21/18 10:01 Methadone HCl (Dolophine -) 15 mg PO ONCE ONE Stop: 04/19/18 23:59 Methadone HCl (Dolophine -) 15 mg PO ONCE ONE Stop: 04/20/18 23:59 Methadone HCl (Dolophine -) 5 mg PO ONCE@0600 ONE Stop: 04/22/18 23:59 Morphine Sulfate (Morphine Sulfate) 2 mg IVPUSH Q4H PRN PRN Reason: PAIN LEVEL 7 - 10 Laboratory Results - last 24 hr 04/18/18 04/18/18 06:00 06:00 WBC 3.8 L RBC 3.88 L Hgb 10.6 L Hct 32.4 L MCV 83.3 MCH 27.2 MCHC 32.6 RDW 14.7 Plt Count 445 H MPV 7.3 L Absolute Neuts (auto) 1.8 Neutrophils % 46.3 D Lymphocytes % 34.4 D Monocytes % 9.5 D Eosinophils % 9.1 H D Basophils % 0.7 Nucleated RBC % 0 Sodium 138 Potassium 4.3 Chloride 106 Carbon Dioxide 28 Anion Gap 4 L BUN 5 L Creatinine 0.4 L Creat Clearance w eGFR > 60 Random Glucose 90 Calcium 8.6 Phosphorus 2.8 Magnesium 2.2 Total Bilirubin 0.3 AST 15 ALT 23 Alkaline Phosphatase 66 Total Protein 6.2 L Albumin 2.6 L Microbiology 04/17/18 15:30 Abscess Wound Culture - Preliminary Staphylococcus Latex Coag Pos Staphylococcus Latex Coag Pos#2 04/17/18 01:45 Blood - Peripheral Venous Blood Culture - Preliminary NO GROWTH OBTAINED AFTER 24 HOURS, INCUBATION TO CONTINUE FOR 4 DAYS. 04/17/18 01:45 Blood - Peripheral Venous Blood Culture - Preliminary NO GROWTH OBTAINED AFTER 24 HOURS, INCUBATION TO CONTINUE FOR 4 DAYS. ASSESSMENT AND PLAN: 28 yom with PMHX of Asthma, IVDU with heroine since age of 21, recently admitted to another hospital with ?Rt forearm cellulitis, d/liliane on abx, but non compliance, comes with Right forearm abscess at prior IVDU site. -Right forearm abscess at prior IVDU site with early sepsis, s/p I&D 04/17 -Heroine addiction/IVDU -Asthma, not in exacerbation Plan: s/p I&D, wound cx noted ID input noted, zosyn/vancomcyin day 2, monitor vanco levels. Detox consult noted, on methadone detox DVTPPX lovenox Dispo anticipate d/c back to [facility] once medical issues resolve. Plan discussed with patient in detail, all questions answered.
[2018-04-18] MEDS: ENOXAPARIN NA (PORCINE) 40 MG/0.4 ML DISP.SYRIN SQ SCH (09:45)
[2018-04-18] MEDS ORDERED: METHADONE HCL 10 MG TABLET PO ONE ×2 (10:00)
[2018-04-18] MEDS: VANCOMYCIN 1 GRAM (PRE-DOCKED) 1,000 MG/250 ML BAG IVPB SCH ×2 (11:39→23:41)
--- NOTE | 2018-04-18 12:31 | PN ---
Physical Exam: SUBJECTIVE: Patient seen and examined this morning at bedside. Continues to have R Forearm pain however much improved. Less somnolent during interview. No overnight events as per nursing staff. Denies any fevers, chills, chest pain, SOB, nausea, vomiting. OBJECTIVE: Vital Signs Period Temp Pulse Resp BP Sys/Betancur Pulse Ox Last 24 Hr 97.4 F-98.9 F 65-114 12-188 93-136/37-78 98-100 GENERAL: Less Somnolent, Alert and Oriented, NAD HEAD: NCAT EYES: PERRL, EOMI ENT: Oropharynx clear without exudates, moist mucous membranes. NECK: No JVD LUNGS: Breath sounds equal, clear to auscultation bilaterally, no wheezes HEART: Regular rate and rhythm, S1, S2 without murmur ABDOMEN: Soft, nontender, nondistended, + bowel sounds, no guarding EXTREMITIES: 2+ pulses, no edema. Right forearm and hand wrapped at wound site. Dressing is clean, dry and intact without any signs of active bleeding. C5-T1 Gross sensation intact b/l. 5/5 muscles strength to Handgrip, Elbow flexion/ extension, Shoulder abduction. NEUROLOGICAL: Cranial nerves II through XII grossly intact. Normal speech SKIN: Warm, dry Laboratory Results - last 24 hr 04/18/18 04/18/18 06:00 06:00 WBC 3.8 L RBC 3.88 L Hgb 10.6 L Hct 32.4 L MCV 83.3 MCH 27.2 MCHC 32.6 RDW 14.7 Plt Count 445 H MPV 7.3 L Absolute Neuts (auto) 1.8 Neutrophils % 46.3 D Lymphocytes % 34.4 D Monocytes % 9.5 D Eosinophils % 9.1 H D Basophils % 0.7 Nucleated RBC % 0 Sodium 138 Potassium 4.3 Chloride 106 Carbon Dioxide 28 Anion Gap 4 L BUN 5 L Creatinine 0.4 L Creat Clearance w eGFR > 60 Random Glucose 90 Calcium 8.6 Phosphorus 2.8 Magnesium 2.2 Total Bilirubin 0.3 AST 15 ALT 23 Alkaline Phosphatase 66 Total Protein 6.2 L Albumin 2.6 L Microbiology 04/17/18 15:30 Abscess Wound Culture - Preliminary Staphylococcus Latex Coag Pos Staphylococcus Latex Coag Pos#2 04/17/18 01:45 Blood - Peripheral Venous Blood Culture - Preliminary NO GROWTH OBTAINED AFTER 24 HOURS, INCUBATION TO CONTINUE FOR 4 DAYS. 04/17/18 01:45 Blood - Peripheral Venous Blood Culture - Preliminary NO GROWTH OBTAINED AFTER 24 HOURS, INCUBATION TO CONTINUE FOR 4 DAYS. Active Medications Enoxaparin Sodium (Lovenox -) 40 mg SQ DAILY [facility] Last Admin: 04/18/18 09:45 Dose: 40 mg Dextrose/Lactated Ringer's (D5-Lr -) 1,000 mls @ 100 mls/hr IV ASDIR [facility] Last Admin: 04/18/18 03:57 Dose: 100 mls/hr Vancomycin HCl (Vancomycin (Pre-Docked)) 1,000 mg in 250 mls @ 166.667 mls/hr IVPB BID@0000,1200 [facility]; Protocol Last Admin: 04/18/18 11:39 Dose: 166.667 mls/hr Piperacillin Sod/Tazobactam (Sod 4.5 gm/ Dextrose) 100 mls @ 200 mls/hr IVPB Q8H-IV [facility]; Protocol Last Admin: 04/18/18 09:45 Dose: 200 mls/hr Ketorolac Tromethamine (Toradol Injection -) 30 mg IVPUSH Q6H PRN PRN Reason: PAIN LEVEL 7 - 10 Stop: 04/22/18 18:19 Last Admin: 04/17/18 18:35 Dose: 30 mg Methadone HCl (Dolophine -) 10 mg PO ONCE ONE Stop: 04/21/18 10:01 Methadone HCl (Dolophine -) 15 mg PO ONCE ONE Stop: 04/19/18 23:59 Methadone HCl (Dolophine -) 15 mg PO ONCE ONE Stop: 04/20/18 23:59 Methadone HCl (Dolophine -) 5 mg PO ONCE@0600 ONE Stop: 04/22/18 23:59 Morphine Sulfate (Morphine Sulfate) 2 mg IVPUSH Q4H PRN PRN Reason: PAIN LEVEL 7 - 10 IMAGING: -CXR: No evidence of active pulmonary disease. -R Forearm XRay: Soft tissue swelling distal aspect of the forearm without visible radiopaque foreign body, emphysematous changes. -R Forearm US: A hyperemic approximately 5 x 4 x 2.4 cm soft tissue lesion is seen along the ventral aspect of the lower right forearm possibly representing a phlegmon. No definite drainable fluid collection is visualized. -EKG: NORMAL SINUS RHYTHM, QTc 481 ASSESSMENT/PLAN: 28 y/o M with PMHx of asthma presented with swollen, fluctuant, tender abscess on the Lateral R Forearm. 1. Right Forearm Abscess -Due to IVDA S/P I&D (04/17) -R Forearm XRay and Ultrasound noted above -ESR and CRP elevation noted, Doubt Osteo -Hand Surgery (Dr. Moise) Consulted, Appreciate Rec's, Appreciate I&D, 5X5cm volar abscess with 10mL of pus, 5mL Estimated Blood Loss -Last Heroine injection at abscess site approx. 24 hours ago -Continue Vancomycin, Zosyn (04/17) -ID (Dr. Queen) Consulted, Appreciate Recs -HIV negative -Continue pain control with Morphine, Toradol -Blood cx NGTD -Wound cx: Staphylococcus Latex Coag Pos 2. Hx of Heroine use -Exhibiting sx's of recent use; Hx of Suboxone use -Addiction medicine (Dr. Vizcaino) Consulted, Appreciate Rec's, Methadone detox protocol started. Pt may be transferred back to [facility] to complete detox protocol when medically cleared. -Continue Methadone protocol -Monitor closely for signs of withdrawal 3. Prolonged QT -EKG Shows QTc of 481 -Avoid QT prolonging medications, Continue to monitor 4. Hx of Asthma -Denies currently using Inhalers or nebulizers at home -Continue to monitor, likely would benefit from outpatient PFTs 5. FEN -D5-Lr -@ 100 mLs/hr -Lytes WNL -Regular Diet 6. PPx -DVT: Heparin Dispo: Monitor on Med-surg Visit type - Emergency Visit Emergency Visit: Yes ED Registration Date: 04/17/18 Care time: The patient presented to the Emergency Department on the above date and was hospitalized for further evaluation of their emergent condition. - New Patient This patient is new to me today: No - Critical Care Critical Care patient: No - Discharge Referral Referred to [facility] No
--- NOTE | 2018-04-18 17:11 | PN ---
Progress Note (short form) - Note Progress Note: s/p incision and drainage of abscess Vital Signs Period Temp Pulse Resp BP Sys/Betancur Pulse Ox Last 24 Hr 97.4 F-98.9 F 69-86 17-188 104-124/47-63 99-99 cor-rrr lungs clear arm bandaged better ROM of his fingers CBC, BMP 04/18/18 06:00 04/18/18 06:00 Microbiology 04/17/18 15:30 Abscess Gram Stain - Final 04/17/18 15:30 Abscess Wound Culture - Preliminary Staphylococcus Latex Coag Pos Staphylococcus Latex Coag Pos#2 04/17/18 01:45 Blood - Peripheral Venous Blood Culture - Preliminary NO GROWTH OBTAINED AFTER 24 HOURS, INCUBATION TO CONTINUE FOR 4 DAYS. 04/17/18 01:45 Blood - Peripheral Venous Blood Culture - Preliminary NO GROWTH OBTAINED AFTER 24 HOURS, INCUBATION TO CONTINUE FOR 4 DAYS. a/p s/p drainage of forearm abscess continue vancomycin d/c zosyn f/u cultures f/u with surgery in am IVDU- active substance use Problem List - Problems (1) Abscess of forearm, right Code(s): L02.413 - CUTANEOUS ABSCESS OF RIGHT UPPER LIMB (2) IVDU (intravenous drug user) Code(s): F19.90 - OTHER PSYCHOACTIVE SUBSTANCE USE, UNSPECIFIED, UNCOMPLICATED
[2018-04-19 07:39] LABS: BASO % 0.9 % (0-2.0); HEMATOCRIT 32.9 % (35.4-49); HEMOGLOBIN 10.6 GM/dL (11.7-16.9); LYMPH % 40.1 % (8-40); MCH 26.8 pg (25.7-33.7); MCHC 32.3 g/dl (32.0-35.9); MEAN PLT VOLUME 6.8 fl (7.5-11.1); MONO % 7.7 % (3.8-10.2); NEUT % 45.3 % (42.8-82.8); PLATELET COUNT 436 K/MM3 (134-434); RBC 3.96 M/mm3 (4.00-5.60); RDW 14.7 % (11.9-15.9); WHITE BLOOD COUNT 3.8 K/mm3 (4.0-10.0)
[2018-04-19 08:06] LABS: SERUM IRON SATURATION 32 % (15-55); TOTAL IRON BINDING CAPACITY 222 ug/dL (250-450); UIBC 151 ug/dL (111-343)
[2018-04-19 08:38] LABS: ALBUMIN 2.5 g/dl (3.4-5.0); ALK PHOS 63 U/L (45-117); ANION GAP 8 MMOL/L (8-16); BILIRUBIN,TOTAL 0.2 mg/dL (0.2-1); BLOOD UREA NITROGEN 6 mg/dL (7-18); CALCIUM 8.6 mg/dL (8.5-10.1); CHLORIDE 104 mmol/L (98-107); CO2 27 mmol/L (21-32); CREATININE 0.4 mg/dL (0.55-1.3); GLUCOSE,RANDOM 91 mg/dL (74-106); MAGNESIUM 2.1 mg/dL (1.8-2.4); POTASSIUM 4.3 mmol/L (3.5-5.1); SGOT/AST 25 U/L (15-37); SGPT/ALT 27 U/L (13-61); SODIUM 139 mmol/L (136-145); TOT PROT 6.1 g/dl (6.4-8.2)
[2018-04-19] MEDS ORDERED: METHADONE HCL 10 MG TABLET PO ONE (10:00)
[2018-04-19] MEDS ORDERED: METHADONE HCL 5 MG TABLET PO ONE ×3 (10:00)
[2018-04-19] MEDS: ENOXAPARIN NA (PORCINE) 40 MG/0.4 ML DISP.SYRIN SQ SCH (10:04)
--- NOTE | 2018-04-19 11:20 | PN ---
Progress Note, Physician - Current Medication List Current Medications: Active Medications Enoxaparin Sodium (Lovenox -) 40 mg SQ DAILY [facility] Last Admin: 04/19/18 10:04 Dose: 40 mg Dextrose/Lactated Ringer's (D5-Lr -) 1,000 mls @ 100 mls/hr IV [facility] Last Admin: 04/18/18 15:39 Dose: 100 mls/hr Vancomycin HCl (Vancomycin (Pre-Docked)) 1,000 mg in 250 mls @ 166.667 mls/hr IVPB BID@0000,1200 [facility]; Protocol Last Admin: 04/18/18 23:41 Dose: 166.667 mls/hr Ketorolac Tromethamine (Toradol Injection -) 30 mg IVPUSH Q6H PRN PRN Reason: PAIN LEVEL 7 - 10 Stop: 04/22/18 18:19 Last Admin: 04/17/18 18:35 Dose: 30 mg Methadone HCl (Dolophine -) 10 mg PO ONCE ONE Stop: 04/20/18 10:01 Methadone HCl (Dolophine -) 5 mg PO ONCE ONE Stop: 04/21/18 10:01 Morphine Sulfate (Morphine Sulfate) 2 mg IVPUSH Q4H PRN PRN Reason: PAIN LEVEL 7 - 10 - Objective Vital Signs: Vital Signs Temperature 97.9 F 04/19/18 06:27 Pulse Rate 81 04/19/18 06:27 Respiratory Rate 20 04/19/18 06:27 Blood Pressure 118/57 L 04/19/18 06:27 O2 Sat by Pulse Oximetry (%) 99 04/18/18 21:00 Labs: CBC, BMP 04/19/18 06:45 04/19/18 06:45 INR, PTT INR 1.31 (0.83-1.09) H 04/17/18 07:35 Problem List - Problems (1) IVDU (intravenous drug user) Code(s): F19.90 - OTHER PSYCHOACTIVE SUBSTANCE USE, UNSPECIFIED, UNCOMPLICATED (2) Asthma Code(s): J45.909 - UNSPECIFIED ASTHMA, UNCOMPLICATED Qualifiers: Asthma severity: mild Asthma persistence: intermittent Asthma complication type: uncomplicated Qualified Code(s): J45.20 - Mild intermittent asthma, uncomplicated (3) Methadone dependence Code(s): F11.20 - OPIOID DEPENDENCE, UNCOMPLICATED (4) Abscess of forearm, right Code(s): L02.413 - CUTANEOUS ABSCESS OF RIGHT UPPER LIMB
[2018-04-19] MEDS: VANCOMYCIN 1 GRAM (PRE-DOCKED) 1,000 MG/250 ML BAG IVPB SCH (11:43)
--- NOTE | 2018-04-19 14:55 | PN ---
Teaching Attending Note Name of Resident: Jaz Beverly ATTENDING PHYSICIAN STATEMENT I saw and evaluated the patient. I reviewed the resident's note and discussed the case with the resident. I agree with the resident's findings and plan as documented with exceptions below. SUBJECTIVE: Patient seen and examined. right hand pain well controlled, no new fevers, chills or new concerns. OBJECTIVE: Vital Signs Period Temp Pulse Resp BP Sys/Betacnur Pulse Ox Last 24 Hr 97.4 F-98.2 F 79-86 18-20 106-130/44-66 99 Intake & Output 04/16/18 04/17/18 04/18/18 04/19/18 23:59 23:59 23:59 23:59 Intake Total 1744 4729 1100 Output Total 0 Balance 1744 4729 1100 Weight 140 lb 127 lb General: lying in bed in no acute distress Extremities: right wrist/hand dressing, full ROM at hands, no surrounding swelling or erythema Active Medications Enoxaparin Sodium (Lovenox -) 40 mg SQ DAILY [facility] Last Admin: 04/19/18 10:04 Dose: 40 mg Dextrose/Lactated Ringer's (D5-Lr -) 1,000 mls @ 100 mls/hr IV ASDIR [facility] Last Admin: 04/18/18 15:39 Dose: 100 mls/hr Vancomycin HCl (Vancomycin (Pre-Docked)) 1,000 mg in 250 mls @ 166.667 mls/hr IVPB BID@0000,1200 [facility]; Protocol Last Admin: 04/19/18 11:43 Dose: 166.667 mls/hr Ketorolac Tromethamine (Toradol Injection -) 30 mg IVPUSH Q6H PRN PRN Reason: PAIN LEVEL 7 - 10 Stop: 04/22/18 18:19 Last Admin: 04/17/18 18:35 Dose: 30 mg Methadone HCl (Dolophine -) 10 mg PO ONCE ONE Stop: 04/20/18 10:01 Methadone HCl (Dolophine -) 5 mg PO ONCE ONE Stop: 04/21/18 10:01 Morphine Sulfate (Morphine Sulfate) 2 mg IVPUSH Q4H PRN PRN Reason: PAIN LEVEL 7 - 10 Laboratory Results - last 24 hr 04/18/18 04/19/18 04/19/18 06:00 06:45 06:45 WBC 3.8 L RBC 3.96 L Hgb 10.6 L Hct 32.9 L MCV 83.0 MCH 26.8 MCHC 32.3 RDW 14.7 Plt Count 436 H MPV 6.8 L Absolute Neuts (auto) 1.7 Neutrophils % 45.3 Lymphocytes % 40.1 H Monocytes % 7.7 Eosinophils % 6.0 H Basophils % 0.9 Nucleated RBC % 0 Sodium 139 Potassium 4.3 Chloride 104 Carbon Dioxide 27 Anion Gap 8 BUN 6 L Creatinine 0.4 L Creat Clearance w eGFR > 60 Random Glucose 91 Calcium 8.6 Phosphorus 3.0 Magnesium 2.1 Iron 71 TIBC 222 L Iron Saturation 32 Total Bilirubin 0.2 AST 25 ALT 27 Alkaline Phosphatase 63 Total Protein 6.1 L Albumin 2.5 L Vancomycin Pre-Dose 04/19/18 10:46 WBC RBC Hgb Hct MCV MCH MCHC RDW Plt Count MPV Absolute Neuts (auto) Neutrophils % Lymphocytes % Monocytes % Eosinophils % Basophils % Nucleated RBC % Sodium Potassium Chloride Carbon Dioxide Anion Gap BUN Creatinine Creat Clearance w eGFR Random Glucose Calcium Phosphorus Magnesium Iron TIBC Iron Saturation Total Bilirubin AST ALT Alkaline Phosphatase Total Protein Albumin Vancomycin Pre-Dose 5.3 L Microbiology 04/17/18 15:30 Abscess Gram Stain - Final 04/17/18 15:30 Abscess Wound Culture - Final Mr S Aureus Staphylococcus Aureus 04/17/18 01:45 Blood - Peripheral Venous Blood Culture - Preliminary NO GROWTH OBTAINED AFTER 48 HOURS, INCUBATION TO CONTINUE FOR 3 DAYS. 04/17/18 01:45 Blood - Peripheral Venous Blood Culture - Preliminary NO GROWTH OBTAINED AFTER 48 HOURS, INCUBATION TO CONTINUE FOR 3 DAYS. ASSESSMENT AND PLAN: 28 yom with PMHX of Asthma, IVDU with heroine since age of 21, recently admitted to another hospital with ?Rt forearm cellulitis, d/liliane on abx, but non compliance, comes with Right forearm abscess at prior IVDU site. -Right forearm abscess at prior IVDU site with early sepsis, s/p I&D 04/17 -Heroine addiction/IVDU -Asthma, not in exacerbation Plan: s/p I&D, wound cx with MRSA/MSSA Discuss with ID, ?dc on bactrim for [address] Moise, no packing, dry dressing. Detox consult noted, on methadone detox DVTPPX lovenox Dispo Discussed with social work, plan for d[facility]c [facility] po abx in 24 hours. Plan discussed with patient in detail, all questions answered.
[2018-04-19 15:14] VITALS: BP 121/54; PULSE 84; TEMP 98.5
--- NOTE | 2018-04-19 15:32 | PN ---
Progress Note (short form) - Note Progress Note: s/p incision and drainage of abscess yesterday Vital Signs Period Temp Pulse Resp BP Sys/Betancur Pulse Ox Last 24 Hr 97.4 F-98.5 F 80-86 18-20 106-130/44-66 99 arm no drainage- some erythema surrounding the incision CBC, BMP 04/19/18 06:45 04/19/18 06:45 Microbiology 04/17/18 15:30 Abscess Gram Stain - Final 04/17/18 15:30 Abscess Wound Culture - Final Mr S Aureus Staphylococcus Aureus 04/17/18 01:45 Blood - Peripheral Venous Blood Culture - Preliminary NO GROWTH OBTAINED AFTER 48 HOURS, INCUBATION TO CONTINUE FOR 3 DAYS. 04/17/18 01:45 Blood - Peripheral Venous Blood Culture - Preliminary NO GROWTH OBTAINED AFTER 48 HOURS, INCUBATION TO CONTINUE FOR 3 DAYS. a/p s/p drainage of forearm abscess arm looks good, no drainage, some surrounding erythema, switch to bactrim ds 1 po bid for 7 days IVDU- active substance use Problem List - Problems (1) Abscess of forearm, right Code(s): L02.413 - CUTANEOUS ABSCESS OF RIGHT UPPER LIMB (2) IVDU (intravenous drug user) Code(s): F19.90 - OTHER PSYCHOACTIVE SUBSTANCE USE, UNSPECIFIED, UNCOMPLICATED
[2018-04-19] MEDS: DEXTROSE 5%-LACTATED RINGERS 1,000 ML IV SCH (15:51)
--- NOTE | 2018-04-19 16:58 | DS ---
Physical Exam: SUBJECTIVE: Patient seen and examined this morning at bedside. R Forearm pain much better controlled. No overnight events as per nursing staff. Denies any fevers, chills, chest pain, SOB, nausea, vomiting. OBJECTIVE: Vital Signs Period Temp Pulse Resp BP Sys/Betancur Pulse Ox Last 24 Hr 97.7 F-98.5 F 80-84 18-20 106-130/44-66 99 PHYSICAL EXAM GENERAL: A&Ox3, NAD HEAD: NCAT EYES: PERRL, EOMI ENT: Oropharynx clear without exudates, moist mucous membranes. NECK: No JVD LUNGS: Breath sounds equal, clear to auscultation bilaterally, no wheezes HEART: Regular rate and rhythm, S1, S2 without murmur ABDOMEN: Soft, nontender, nondistended, + bowel sounds, no guarding EXTREMITIES: 2+ pulses, no edema. Right forearm and hand wrapped at wound site. Dressing is clean, dry and intact without any signs of active bleeding. C5-T1 Gross sensation intact b/l. 5/5 muscles strength to Handgrip, Elbow flexion/ extension, Shoulder abduction. NEUROLOGICAL: Cranial nerves II through XII grossly intact. Normal speech SKIN: Warm, dry LABS Laboratory Results - last 24 hr 04/18/18 04/19/18 04/19/18 06:00 06:45 06:45 WBC 3.8 L RBC 3.96 L Hgb 10.6 L Hct 32.9 L MCV 83.0 MCH 26.8 MCHC 32.3 RDW 14.7 Plt Count 436 H MPV 6.8 L Absolute Neuts (auto) 1.7 Neutrophils % 45.3 Lymphocytes % 40.1 H Monocytes % 7.7 Eosinophils % 6.0 H Basophils % 0.9 Nucleated RBC % 0 Sodium 139 Potassium 4.3 Chloride 104 Carbon Dioxide 27 Anion Gap 8 BUN 6 L Creatinine 0.4 L Creat Clearance w eGFR > 60 Random Glucose 91 Calcium 8.6 Phosphorus 3.0 Magnesium 2.1 Iron 71 TIBC 222 L Iron Saturation 32 Total Bilirubin 0.2 AST 25 ALT 27 Alkaline Phosphatase 63 Total Protein 6.1 L Albumin 2.5 L Vancomycin Pre-Dose 04/19/18 10:46 WBC RBC Hgb Hct MCV MCH MCHC RDW Plt Count MPV Absolute Neuts (auto) Neutrophils % Lymphocytes % Monocytes % Eosinophils % Basophils % Nucleated RBC % Sodium Potassium Chloride Carbon Dioxide Anion Gap BUN Creatinine Creat Clearance w eGFR Random Glucose Calcium Phosphorus Magnesium Iron TIBC Iron Saturation Total Bilirubin AST ALT Alkaline Phosphatase Total Protein Albumin Vancomycin Pre-Dose 5.3 L Microbiology 04/17/18 15:30 Abscess Gram Stain - Final 04/17/18 15:30 Abscess Wound Culture - Final S Aureus Staphylococcus Aureus 04/17/18 01:45 Blood - Peripheral Venous Blood Culture - Preliminary NO GROWTH OBTAINED AFTER 48 HOURS, INCUBATION TO CONTINUE FOR 3 DAYS. 04/17/18 01:45 Blood - Peripheral Venous Blood Culture - Preliminary NO GROWTH OBTAINED AFTER 48 HOURS, INCUBATION TO CONTINUE FOR 3 DAYS. IMAGING: -CXR: No evidence of active pulmonary disease. -R Forearm XRay: Soft tissue swelling distal aspect of the forearm without visible radiopaque foreign body, emphysematous changes. -R Forearm US: A hyperemic approximately 5 x 4 x 2.4 cm soft tissue lesion is seen along the ventral aspect of the lower right forearm possibly representing a phlegmon. No definite drainable fluid collection is visualized. -EKG: NORMAL SINUS RHYTHM, QTc 481 HOSPITAL COURSE: Date of Admission:04/17/18 Date of Discharge: 04/19/18 28 y/o M with PMHx of asthma presented with swollen, fluctuant, tender abscess on the Lateral R Forearm. R Forearm XRay and Ultrasound were done (noted above) . An I&D was performed on 04/[address] Moise that drained a 5X5cm volar abscess with 10mL of pus. Blood cultures revealed NGTD; Wound cultures were positive for MRSA. ID was consulted and patient completed a 3 day course of IV Abx (Vanco , Zosyn). His pain was initially controlled with Morphine and Toradol. Patient admitted to Heroin use on admission (and hx of suboxone use in the past) , siting his last inject at abscess site was approx. 24 hours prior to admission. Addiction medicine was consulted and patient was started on on Methadone detox protocol and completed 3 days. Patient was discharged to [facility] to complete detox. He was given strict instructions for Wound care, activity, pain control and follow up. Additionally, he was discharged on Bactrim DS BID x 1 week. Minutes to complete discharge: 40 Discharge Summary Reason For Visit: ABSCESS OF RIGHT FOREARM Current Active Problems Abscess of forearm, right (Acute) Asthma (Acute) IVDU (intravenous drug user) (Acute) Methadone dependence (Acute) Condition: Improved - Instructions Diet, Activity, Other Instructions: Postoperative instructions: You had a incision and drainage of Right forearm abscess on 04/17/[address] Dillan Moise of [facility]. Activity: Resume your usual activities gradually, but no heavy exertion or lifting more than 10-15 pounds for 4-6 weeks. Remove dressings 48 hours after surgery, if they are not already off. Eat lightly at first, but advance to your usual diet as tolerated. Pain: For pain, you may use and alternate Tylenol (acetaminophen) 1-2 pills and/ or ibuprofen 200 mg (1-3 pills) every 6 hours each as needed; this means that you can take one OR the other at 3-hour intervals. If you are prescribed a Tylenol/narcotic combination for severe pain, use it instead of plain Tylenol as needed and switch back when your pain starts decreasing. Do not take more than 4000 mg of acetaminophen in a day. Take medications as prescribed or indicated on the labeling. Follow-up: Call Dr. Galvan's office at [phone] to make your postop appointment (Sunday in approximately 2 weeks after surgery as advised). Clinic is held in the [facility] on the first floor of [facility]. Call the office if you have: * increasing pain not responsive to pain medication * fever of 101F or higher * unusual or increasing bleeding or drainage from wounds * increasing redness or swelling at wound sites Also, see your primary medical doctor within 1-2 weeks. Antibiotic Bactrim DS 1 tablet twice daily for 1 week. Drink plenty of fluids and keep yourself hydrated on the antibiotic. If you notice any new rash, decreased urination or new concerns, please stop the antibiotic and call your doctor. Apply dry dressing over the wound Keep area dry and apply new dressing daily over the next week. Disposition: [facility] FACILITY - Home Medications Comprehensive Discharge Medication List: Ambulatory Orders Sulfamethoxazole/Trimethoprim [Bactrim DS -] 1 each PO BID #14 tablet 04/19/18 This patient is new to me today: No Emergency Visit: Yes ED Registration Date: 04/17/18 Care time: The patient presented to the Emergency Department on the above date and was hospitalized for further evaluation of their emergent condition. Critical Care patient: No - Discharge Referral Referred to [facility] No
[2018-04-19] MEDS ORDERED: SULFAMETHOXAZOLE/TRIMETHOPRIM 800MG/160MG D.S. TABLET PO SCH (22:00)
[2018-04-19] MEDS ORDERED: VANCOMYCIN 1,250 MG in DEXTROSE 5%-WATER - 250 ML IVPB SCH (23:00)
[2018-04-20] MEDS ORDERED: METHADONE HCL 10 MG TABLET PO ONE ×2 (10:00)
[2018-04-20] MEDS ORDERED: METHADONE HCL 5 MG TABLET PO ONE ×3 (10:00)
[2018-04-21] MEDS ORDERED: METHADONE HCL 10 MG TABLET PO ONE ×2 (10:00)
[2018-04-21] MEDS ORDERED: METHADONE HCL 5 MG TABLET PO ONE (10:00)
[2018-04-22] MEDS ORDERED: METHADONE HCL 5 MG TABLET PO ONE ×3 (06:00)
--- NOTE | 2018-04-30 16:25 | OP ---
DATE OF OPERATION: 04/19/2018 PREOPERATIVE DIAGNOSIS: Right forearm abscess. POSTOPERATIVE DIAGNOSIS: Right forearm abscess. PROCEDURE: Incision and drainage right forearm abscess. ATTENDING SURGEON: Dillan Moise MD BOTTOM STAINER: None. ANESTHESIA: General with local. Local consisted of 0.5% Marcaine a total of 10 mL given in area block fashion. ESTIMATED BLOOD LOSS: 2 mL. TOURNIQUET PRESSURE: 250 mmHg. TOURNIQUET TIME: 8 minutes. INDICATION: Patient is an IV drug abuser presenting with a right volar forearm abscess just distal to the antecubital fossa. He was counseled regarding risks, benefits, alternatives to surgical incision drainage. Signed informed consent and was taken for procedure. DESCRIPTION OF PROCEDURE: Patient was brought to the operating room, placed in supine position on the operating table with the right arm extended at 90 degrees from the body's midline axis. The lower extremities had SCDs placed. He received intravenous antibiotics prior to the start of surgery, was induced with general anesthesia, endotracheally intubated. Arm was suspended, and tourniquet was inflated to a pressure of 250 mmHg. We proceeded first with a standard incision and drainage and debridement of necrotic tissue with scalpel and scissors in what appeared to be gangrenous skin. There was a gush of pus when we entered the cavity just distal to the antecubital fossa. This was cultured and sent for sensitivity. We proceeded then with additional debridement, irrigation of the cavity site which was shallow into the muscle fascia. The muscle fascia was then opened to relieve pressure on the muscular bellies. We then proceeded with irrigation of the area, and we packed the remaining surgical crater with Iodoform 0.25 inch packing. After complete, sterile dressings were complete using 4 x 4 gauze, sponges, Kerlix wrap, and then Coban. Patient was awoken from anesthesia having tolerated procedure well, was planned for wound care over the next few days in the hospital. MD ANTHONY Collins/[id number]
== END 2018-04-19 20:55 | disposition other institution (70) | DRG 383 ==
LOC: JER 23:11 → JERBED 04-17 04:06 → UNDOADMIN 04-17 05:56 → JERBED 04-17 05:56 → J8W 04-17 09:39
PROVIDERS: ADMIT Internal Medicine; ATTEND Hospitalist
PROC: 0J9G3ZX Drainage of Right Lower Arm Subcutaneous Tissue and Fascia, Percutaneous Approach, Diagnostic (ICD-10-PCS; principal; 2018-04-17 14:00)
DX: L02.413 Cutaneous abscess of right upper limb (principal); R64 Cachexia; F11.20 Opioid dependence, uncomplicated; I45.81 Long QT syndrome; D64.9 Anemia, unspecified; Z68.1 Body mass index [BMI] 19.9 or less, adult; J45.20 Mild intermittent asthma, uncomplicated; B95.62 Methicillin resistant Staphylococcus aureus infection as the cause of diseases classified elsewhere
CPT/HCPCS: 36415; 71046-TC-FY; 73090-TC-RT-FY; 76882-TC-RT-FY; 80048; 80053; 82728; 83540; 83550; 83735; 84100; 85025; 85044; 85610; 85651; 85730; 86140; 87040; 87070; 87186; 87205; 87389; 93005; 93010; 94010; 94760; 97116-GP; 97161-GP; 99285-25; G0480; J0735; J1644; J7030